=== PATIENT | female | born 1975 | race Caucasian/White ===

== ENCOUNTER 2017-09-09 08:19 | Outpatient (CLI) | payer OTHER | END 2017-09-09 08:51 | disposition home or self-care (01) | LOC: LAB 08:19 | DX: Z12.31 Encounter for screening mammogram for malignant neoplasm of breast (principal); I10 Essential (primary) hypertension; E07.89 Other specified disorders of thyroid; E00.9 Congenital iodine-deficiency syndrome, unspecified ==

== ENCOUNTER → 2019-01-01 | Emergency (ER) | payer OTHER ==
[~2019-01-01] VITALS: Ht 149.9 cm; Wt 47.6 kg
== END | disposition left against medical advice (07) ==
LOC: ER 23:44
DX: Z53.20 Procedure and treatment not carried out because of patient's decision for unspecified reasons (principal)

== ENCOUNTER 2021-06-16 17:34 | Emergency (ER) | payer OTHER ==
[~2021-06-16] VITALS: Ht 149.9 cm; Wt 52.2 kg
== END 2021-06-16 22:43 | disposition home or self-care (01) ==
LOC: ER 17:34
DX: M25.571 Pain in right ankle and joints of right foot (principal); X58.XXXA Exposure to other specified factors, initial encounter; Y92.219 Unspecified school as the place of occurrence of the external cause